=== PATIENT | female | born 1935 | race Caucasian/White ===

== ENCOUNTER 2019-10-22 21:58 | Emergency (ER) | payer MEDICARE, SELFPAY ==
--- NOTE | ~2019-10-22 | XR_ITS ---
XR chest 1V portable 10/22/2019 22:47 Indication: Fever of unknown origin Procedure: AP portable chest Comparison: 11/05/2013 Findings: Heart size is normal. There is a hiatal hernia. No focal air space disease, pulmonary edema , pleural effusion or suspected pneumothorax. Impression: 1: No acute cardiopulmonary disease. 2: Hiatal hernia. Reviewed, dictated and finalized at location A. FINISHER Impression: 1: No acute cardiopulmonary disease. 2: Hiatal hernia.
[2019-10-22 21:59] VITALS: BP 83/49; PULSE 98; RESP 17; TEMP 38.4; O2SAT 100
[2019-10-22 22:13] VITALS: O2SAT 98
--- NOTE | 2019-10-22 22:14 | ED.GENADULT ---
HPI - General Adult General Chief complaint: Fever Stated complaint: fever Time Seen by Provider: 10/22/19 22:01 Source: patient, family and EMS Mode of arrival: EMS Limitations: physical limitation History of Present Illness HPI narrative: [facility] for further evaluation of fever. Prior to departure she was given a gram of Tylenol and on arrival here she is afebrile. Her niece is at the bedside who is her POA and a very good historian. She states that the patient is at baseline for responsiveness, and the patient has been in a declining state for several months. She states that she needs more more help to eat. She has not had to be hospitalized, but she was on oxygen last week briefly. Onset (ago): hour(s) Treatments prior to arrival: NSAID Related Data Allergies Allergy/AdvReac Type Severity Reaction Status Date / Time Penicillins Allergy Unknown Unknown Verified 10/22/19 22:20 Sulfa (Sulfonamide Allergy Unknown Unknown Verified 10/22/19 22:20 Antibiotics) Review of Systems Review of Systems: ROS unobtainable: unobtainable due to mental status [facility] Past Medical History Medical History Hip fracture Social History Social History (Updated 10/22/19 @ 22:46 by Nisha Stover PA-C) Smoking status: Never smoker Living arrangements: [facility] Exam Const: General: no acute distress and ill appearing chronically HENMT: Head: normal to inspection Eyes: Conjunctivae: conjunctivae normal Pupils: Equal, round and reactive pupils present Neck: Neck: no lymphadenopathy Resp: Effort & Inspection: normal respiratory effort Auscultation: clear to auscultation bilaterally Cardio: Rate: regular rate Rhythm: regular rhythm GI: GI Palp: Yes Soft to palpation Skin: General skin exam: normal color Rashes: no rashes Extrem: General: normal to inspection Course Course Emergency Course: Pts BP is low, currently 104/50. Discussed families desires for fluid resuscitation. The niece would like IVF and antibiotics, no other heroics. BP is improved with IVF. Pt has received 1 dose of tamiflu. SpO2 has remained 97-99% on room air. Pt may be discharged to [facility]. Vital Signs Vital signs: Vital Signs Temperature 38.4 C H 10/22/19 21:59 Pulse Rate 98 10/22/19 21:59 Respiratory Rate 17 10/22/19 21:59 Blood Pressure 83/49 L 10/22/19 21:59 Pulse Oximetry 100 10/22/19 21:59 Temperature 38.4 C H 10/22/19 21:59 Pulse Rate 87 10/22/19 22:48 Respiratory Rate 22 H 10/22/19 22:48 Blood Pressure 103/50 L 10/22/19 22:48 Pulse Oximetry 93 10/22/19 22:48 Medical Decision Making Vital Signs Vital Signs: Vital Signs Temperature 38.4 C H 10/22/19 21:59 Pulse Rate 98 10/22/19 21:59 Respiratory Rate 17 10/22/19 21:59 Blood Pressure 83/49 L 10/22/19 21:59 Pulse Oximetry 100 10/22/19 21:59 Temperature 38.4 C H 10/22/19 21:59 Pulse Rate 87 10/22/19 22:48 Respiratory Rate 22 H 10/22/19 22:48 Blood Pressure 103/50 L 10/22/19 22:48 Pulse Oximetry 93 10/22/19 22:48 Lab Data Result diagrams: 10/22/19 23:12 10/22/19 23:12 Labs: Lab Results 10/22/19 10/22/19 10/22/19 Range/Units 23:12 23:12 23:12 WBC 5.6 (4.5-10.0) K/mm3 RBC 2.69 L (4.2-5.4) M/mm3 Hgb 9.2 L (12.0-15.0) g/dL Hct 28.5 L (37.0-47.0) % MCV 105.9 H (80-100) fl MCH 34.2 H (26-34) pg MCHC 32.3 (32-36) g/dl RDW 12.6 (11.5-14.5) % Plt Count 127 L (150-375) k/mm3 MPV 11.7 H (7.4-10.4) fl Immature Gran % (Auto) 0.9 H (0-0.5) % Neut % (Auto) 92.8 H (45.5-73.1) % Lymph % (Auto) 4.9 L (18.3-44.2) % Holt % (Auto) 0.7 L (2.6-8.5) % Eos % (Auto) 0.0 (0-4.4) % Baso % (Auto) 0.7 (0.2-1.2) % Lymph # (Auto) 0.27 L (0.9-3.2) K/mm3 Holt # (Auto) 0.0 L (0.1-0.6) K/mm3 E
[2019-10-22] MEDS: SODIUM CHLORIDE 0.9% IV 500 ML 999 ML IV CONT (22:47)
[2019-10-22 22:48] VITALS: BP 103/50; PULSE 87; RESP 22; O2SAT 93
[2019-10-22 23:20] LABS: Basophils Percent Auto 0.7 % (0.2-1.2); Hematocrit 28.5 % (37.0-47.0); Hemoglobin 9.2 g/dL (12.0-15.0); Immature Granulocyte Absolute 0.05 K/mm3 (0.00-0.031); Immature Granulocyte Percent A 0.9 % (0-0.5); Immature Platelet Fraction Pct 3.7 % (0.9-11.2); Lymphocytes Absolute Auto 0.27 K/mm3 (0.9-3.2); Lymphocytes Percent Auto 4.9 % (18.3-44.2); Mean Corpuscular HGB Conc 32.3 g/dl (32-36); Mean Corpuscular Hemoglobin 34.2 pg (26-34); Mean Corpuscular Volume 105.9 fl (80-100); Mean Platelet Volume 11.7 fl (7.4-10.4); Monocytes Percent Auto 0.7 % (2.6-8.5); Neutrophils Absolute Auto 5.2 K/mm3 (1.3-6.7); Neutrophils Percent Auto 92.8 % (45.5-73.1); Platelet Count Result 127 k/mm3 (150-375); Red Blood Count 2.69 M/mm3 (4.2-5.4); Red Cell Distribution Width 12.6 % (11.5-14.5); White Blood Count 5.6 K/mm3 (4.5-10.0)
[2019-10-22] MEDS: OSELTAMIVIR PHOSPHATE ORAL SUSP 75 MG/12.5 ML SYRINGE PO (23:22)
[2019-10-22 23:33] LABS: Add Urine Microscopic? YES; Appearance Urine Cloudy (Clear); Bacteria Urine Trace /hpf; Bilirubin Urine Negative (Negative); Blood Urine 1+ (Negative); Color Urine Yellow (Yellow); Glucose Urine UA Negative (Negative); Ketones Urine Trace mg/dL (Negative); Leukocyte Esterase Ur Negative LEU/UL (Negative); Mucus Urine Rare /lpf; Nitrate Urine Negative (Negative); Protein Urine Negative (Negative); Specific Grav Ur 1.018 (1.001-1.035); Squamous Epithelial Cell Urine Few /hpf (Few); Urobilinogen Urine Negative mg/dL (<2.0); WBC Urine 0-3 /hpf
[2019-10-22 23:37] LABS: Blood Urea Nitrogen 25 mg/dL (7-17); Calcium 8.7 mg/dL (8.4-10.2); Carbon Dioxide 25 mmol/L (22-30); Chloride 105 mmol/L (98-107); Estimated Glomerular Filt Rate 47; Glucose 130 mg/dL (65-105); Potassium 3.7 mmol/L (3.4-5.0); Sodium 141 mmol/L (137-145)
[2019-10-23] MEDS: SODIUM CHLORIDE 0.9% IV 500 ML 999 ML IV CONT (00:20)
[2019-10-23 01:15] VITALS: BP 128/58
[2019-10-23 01:31] VITALS: PULSE 92; RESP 19; TEMP 37.6
--- NOTE | 2019-10-23 01:58 | PC.NURSE ---
Addendum entered by Kassy Tafoya 10/23/19 06:10: Called [facility] for status...ETA approximately 1 hour Addendum entered by Kassy Tafoya 10/23/19 04:24: Called [facility] for status...ETA approx. 1.5 hours Addendum entered by Kassy Tafoya 10/23/19 02:46: Called [facility] for update...[id number] Original Note: Called [facility] to transport back to facility...ETA [id number]
[2019-10-23 03:34] VITALS: BP 132/56; PULSE 96; RESP 23; O2SAT 94
== END 2019-10-23 06:50 ==
PROVIDERS: Physician Assistant; Emergency Provider Emergency Medicine; PCP Family Medicine
DX: J10.1 Influenza due to other identified influenza virus with other respiratory manifestations (principal); E86.0 Dehydration
CPT/HCPCS: 36415; 71045; 80048; 81001; 83605; 85025; 85055; 87804; 99283; A9270; J7040